=== PATIENT | female | born 1945 | race Caucasian/White ===

== ENCOUNTER → 2016-06-29 | Outpatient (CLI) | payer MEDICARE, BC ==
[~2016-06-29] MED LIST: IOHEXOL 240 MG/ML 50ML VIAL. ONE; IOHEXOL 240 MG/ML 50ML VIAL. PO ONE; IOHEXOL 300 MG/ML 75 ML VIAL. IV ONE
[2016-06-29 10:56] LABS: BASO # 0.1 x10^3/uL (0.0-0.2); BASO % 1 % (0-3); EOS # 0.2 x10^3/uL (0.0-0.7); EOS % 2 % (0-3); HEMATOCRIT 48.7 % (36.0-47.0); HEMOGLOBIN 16.2 g/dL (12.0-15.5); LYMPH % 27 % (24-48); MEAN CORPUSCULAR HEMOGLOBIN 31 pg (25-35); MEAN CORPUSCULAR HGB CONC 33 g/dL (31-37); MEAN CORPUSCULAR VOLUME 91 fL (79-100); MONO % 9 % (0-9); NEUT # 6.9 x10^3uL (1.8-7.7); NEUT % 62 % (31-73); PLATELET COUNT 324 x10^3/uL (140-400); RED BLOOD COUNT 5.33 x10^6/uL (3.50-5.40); RED CELL DISTRIBUTION WIDTH 15.2 % (11.5-14.5); WHITE BLOOD COUNT 11.1 x10^3/uL (4.0-11.0)
[2016-06-29 11:05] LABS: ALBUMIN 3.9 g/dL (3.4-5.0); ALBUMIN/GLOBULIN RATIO 1.1 (1.0-1.7); CALCIUM 9.3 mg/dL (8.5-10.1); CREATININE 0.8 mg/dL (0.6-1.0); GFR 71.3; POTASSIUM 4.5 mmol/L (3.5-5.1); TOTAL BILIRUBIN 0.4 mg/dL (0.2-1.0); TOTAL PROTEIN 7.5 g/dL (6.4-8.2)
--- NOTE | 2016-06-29 12:34 | RAD ---
CT abdomen and pelvis with IV contrast History: 5 year follow-up from [facility] tumor, recurrent bladder infections of February 2016. Comparison: CT abdomen pelvis June 24, 2015. Technique: After administration of oral and intravenous contrast, 70 mL Omnipaque 300, helical CT of the abdomen and pelvis was performed from the lung bases through the ischial tuberosities. Axial, sagittal, and coronal reconstructions were obtained. One or more of the following individualized dose reduction techniques were utilized for the study: Automated exposure control Adjustment of mA and/or kV according to patient's size Use of iterative reconstruction technique. Findings: A 4 mm right middle lobe pulmonary nodule is unchanged. Liver, spleen, pancreas, and bilateral adrenal glands are unremarkable. Gallbladder is absent. Postsurgical changes of a partial gastrectomy are seen, similar to previous study. Bilateral kidneys enhance symmetrically. Inferior pole of right kidney demonstrates angiomyolipoma measuring 1.6 cm. There is thought to be additional angiomyolipoma involving the interpolar region of right kidney measuring 1.0 cm. Superior pole of left kidney demonstrates suspected subcentimeter angiomyolipoma. There is no evidence of bowel obstruction. No free air or free fluid is identified in the abdomen or pelvis. No abdominal or pelvic lymphadenopathy is seen. Aortic atherosclerosis is noted. Several small fat-containing epigastric incisional ventral hernias are seen. Appendix is not confidently identified. The uterus and adnexa unremarkable CT appearance. Urinary bladder is unremarkable. No free air or free fluid is seen in the abdomen or pelvis. There is interval development of irregularity involving the superior endplate of L3 with sclerosis as well as central superior endplate depression. This may represent changes of subacute Schmorl's node. No convincing osseous metastatic disease is seen. Several sclerotic lesions involving the proximal left femur are unchanged. Impression: 1. No evidence of recurrent or metastatic disease. 2. Interval development of subacute Schmorl's node involving L3. 3. Bilateral renal angiomyolipomata. 4. Several small fat-containing epigastric incisional ventral hernias.
== END | disposition home or self-care (01) ==
LOC: CT 10:10
PROVIDERS: ATTEND Internal Medicine Hematology & Oncology
DX: C49.4 Malignant neoplasm of connective and soft tissue of abdomen (principal); D17.9 Benign lipomatous neoplasm, unspecified; K43.2 Incisional hernia without obstruction or gangrene; R91.1 Solitary pulmonary nodule
CPT/HCPCS: 36415; 74177; 80053; 85027; Q9966; Q9967

== ENCOUNTER → 2019-05-01 | Outpatient (CLI) | payer MEDICARE, BC ==
--- NOTE | 2019-05-01 17:45 | RAD ---
EXAM: CT Chest without IV contrast INDICATION: Lung nodule follow-up TECHNIQUE: Multi-detector row CT images were acquired from the thoracic inlet through the upper abdomen without the use of IV contrast. Sagittal and coronal images were acquired from the transaxial data. All CT scans performed at this facility utilize dose optimization techniques as appropriate to the exam, including the following: Automated exposure control and adjustment of the mA and/or KV according to patient size (this includes techniques or standardized protocols for targeted exams where dose is indication/reason for exam). COMPARISON: None currently available FINDINGS: The absence of IV contrast limits evaluation of soft tissue pathology. CARDIOVASCULAR: Multivessel coronary calcifications. Normal heart size. MEDIASTINUM & ANI: A 1.3 cm dominant right thyroid lobe nodule with inferior coarse calcifications. LUNGS: Spiculated nodule in the medial posterior right upper lobe (image 38 of axial series 2) measures 6 mm on this exam. 2 adjacent abutting nodular densities in the anterior basal left lower lobe measure 5 mm (image 66 axial series 2). Centrilobular pattern emphysema. PLEURAL SPACE: No pleural effusions or pneumothorax. Small left fat-containing Bochdalek hernia. 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 1 cm angiomyolipoma in the midpole right kidney and atherosclerotic calcifications abdominal aorta are evident. Upper abdominal postsurgical bowel anatomy is not well depicted given under distention. IMPRESSION: 1. Emphysema with a spiculated 6 mm posterior right upper lobe lung nodule, and a bilobed or a pair of adjacent anterior basal left lower lobe nodules together measuring 5 mm are present. Correlation with any prior imaging if available would be helpful in assessing stability or interval growth. 2. A dominant right thyroid lobe 1.3 cm nodule with inferior aspect calcifications is recommended for correlative ultrasound. Electronically signed by: Miles Couch MD (05/01/2019 5:42 PM) [facility]
== END | disposition home or self-care (01) ==
LOC: CT 13:18
PROVIDERS: ATTEND Family Medicine
DX: J43.2 Centrilobular emphysema (principal); R91.8 Other nonspecific abnormal finding of lung field; I25.10 Atherosclerotic heart disease of native coronary artery without angina pectoris; E04.1 Nontoxic single thyroid nodule; I70.0 Atherosclerosis of aorta; Z90.49 Acquired absence of other specified parts of digestive tract
CPT/HCPCS: 71250